=== PATIENT | male | born 1950 | race Caucasian/White ===

== ENCOUNTER 2019-04-11 18:17 | Inpatient (IN) | payer MEDICARE ==
[~2019-04-11] VITALS: Ht 177.8 cm; Wt 71.0 kg
[2019-04-11] MEDS ORDERED: PANT40 PO (19:23)
[2019-04-11] MEDS ORDERED: Mobic15 MG PO (19:23)
[2019-04-11] MEDS ORDERED: Flomax0.4 MG PO (19:24)
[2019-04-11] MEDS ORDERED: Amitriptyline150 MG PO (19:24)
[2019-04-11] MEDS ORDERED: ATOR80 PO (19:25)
[2019-04-11] MEDS ORDERED: DULO60 PO (19:25)
[2019-04-11] MEDS ORDERED: ROXICODONE15 MG PO (19:26)
[2019-04-11] MEDS ORDERED: ALBU2.5V5 NEB (19:41)
[2019-04-11] MEDS ORDERED: Ventolin/Prove6.7 GM INH (19:43)
[2019-04-11] MEDS ORDERED: INCRUSE ELLI62.5 MCG INH (19:44)
[2019-04-11] MEDS ORDERED: COLCHICINE0.6 MG PO (20:21)
[2019-04-11] MEDS ORDERED: Ranitidine HCl300 MG PO (20:23)
[2019-04-11 20:49] LABS: BASOPHILS ABSOLUTE AUTO 0.03 K/mm3 (0.00-0.23); BASOPHILS PERCENT AUTO 0 % (0-2); EOSINOPHILS PERCENT AUTO 0 % (0-6); Hematocrit 43.8 % (37.0-53.0); Hemoglobin 13.1 g/dL (13.5-17.5); IMMATURE GRAN ABSOLUTE AUTO 0.11 K/mm3 (0.00-0.10); IMMATURE GRAN PERCENT AUTO 1 % (0-1); LYMPHOCYTES ABSOLUTE AUTO 0.53 K/mm3 (0.84-5.20); LYMPHOCYTES PERCENT AUTO 3 % (21-46); MONOCYTES PERCENT AUTO 7 % (4-13); Mean Corpuscular HGB 25.1 pg (26.0-34.0); Mean Corpuscular HGB Conc 29.9 g/dL (31.5-36.5); Mean Corpuscular Volume 84 fL (80-100); Mean Platelet Volume 11.3 fL (9.1-12.4); NEUTROPHILS PERCENT AUTO 90 % (41-73); NRBC ABSOLUTE 0.04 K/mm3 (0.00-0.02); NRBC Auto 0.2 /100 WBC (0.0-0.2); Platelet Count 276 K/mm3 (150-400); RDW Coefficient Variation 15.3 % (11.7-14.2); RDW Standard Deviation 46.5 fL (35.1-46.3); Red Blood Cell Count 5.21 M/mm3 (4.30-5.90); White Blood Cell Count 18.87 K/mm3 (4.00-11.30)
--- NOTE | 2019-04-11 21:00 | NUR ---
Admission/[facility]/Intubation: Patient arrived to unit at 2015hr via stretcher, accompanied by x2 ED nurses. Patient appears alert, would look at staff when his name was called, otherwise not following any commands, no verbal response. Upper extremities restless/jerking, occasionally pulling on restraints. Upon arrival, patient appeared to be guppy breathing, short/shallow/rapid breaths (30's). Lung sounds course throughout, 6L/NC via NC, O2-93%. Patient transferred to ICU bed and Dr. Silva contacted to come assess patient. Then placed on non-rebreather at 100%, as O2% began to decrease and patient becoming less responsive. HR showed NSR with BBB, rate 70's. Dr. Silva to room at approx 2024hr to assess patient, decision then made to intubate patient. Verbal order received for 500ml NS bolus, BP remaining stable, systolic 110-130's. RT x2, and several nursing staff to room. Versed 2mg given at 6hr, Vecuronium 8mg 2036hr, Etomidate 20mg 2036. 8.0 ET tube placed at 5hr, 24cm at lip. Vent set to AC-16/450/5/40%. Patient tolerating vent without difficulty. New IV placed to rt AC and sample sent to lab for multiple lab orders. ABG drawn x30min after intubation. Critical values of lactic-6.0, pH-7.26, call placed to Dr. Silva, no new orders received. Bilateral soft wrist restraints in place.
[2019-04-11 21:06] LABS: International Normalized Ratio 2.62; Prothrombin Time Results 25.4 Sec (9.7-11.5)
[2019-04-11 21:40] LABS: PCO2 Arterial 37.4 mmHg (35-45); PO2 Arterial 91.4 mmHg (80-100); pH Blood Arterial 7.26 (7.35-7.45)
[2019-04-11 22:26] LABS: Magnesium, Blood 2.2 mg/dL (1.6-2.4); Troponin I 0.137 ng/mL (0.000-0.040)
[2019-04-11 22:39] LABS: Albumin, Blood 2.9 g/dL (3.4-5.0); Albumin/Globulin Ratio 1.2 (0.8-1.8); Bilirubin, Total 3.4 mg/dL (0.1-1.0); Bun/Creatinine Ratio 30.5 (12.0-20.0); Calcium, Blood 8.2 mg/dL (8.5-10.1); Creatinine, Blood 1.9 mg/dL (0.60-1.20); Globulin, Blood 2.5 g/dL (2.2-4.0); Potassium, Blood 6.1 mmol/L (3.5-5.5); Total Protein, Blood 5.4 g/dL (6.4-8.2)
[2019-04-11] MEDS ORDERED: OXYC5 PO (22:49)
[2019-04-11 22:56] LABS: Creatine Kinase MB 62.7 ng/mL (0.0-3.6); Creatine Kinase MB Index 3.5 (0.0-4.0)
[2019-04-11 23:17] LABS: Adenovirus Not Detected (NOT DETECT); Bordetella pertussis Not Detected (NOT DETECT); Chlamydophila pneumoniae Not Detected (NOT DETECT); Coronavirus 229E Not Detected (NOT DETECT); Coronavirus HKU1 Not Detected (NOT DETECT); Coronavirus NL63 Not Detected (NOT DETECT); Coronavirus OC43 Not Detected (NOT DETECT); Human Metapneumovirus Not Detected (NOT DETECT); Human Rhinovirus/Enterovirus Not Detected (NOT DETECT); Influenza A Not Detected (NOT DETECT); Influenza A/2009-H1 Not Detected (NOT DETECT); Influenza A/H1 Not Detected (NOT DETECT); Influenza A/H3 Not Detected (NOT DETECT); Influenza B Not Detected (NOT DETECT); Mycoplasma pneumoniae Not Detected (NOT DETECT); Parainfluenza Virus 1 Not Detected (NOT DETECT); Parainfluenza Virus 2 Not Detected (NOT DETECT); Parainfluenza Virus 3 Not Detected (NOT DETECT); Parainfluenza Virus 4 Not Detected (NOT DETECT); Respiratory Syncytial Virus Not Detected (NOT DETECT)
--- NOTE | 2019-04-11 23:30 | NUR ---
Critical Result: BMP received at approx 2230hr, critical result K+ 6.1 received. Call placed to Dr. Silva at approx 2320hr, addressed critical K+, glucose-69, and informed of elevated Ck, CK-MG, Troponin, BNP, and liver enzymes. Received orders for Calcium Gluconate 1g IV, 5u regular insulin IV, D50% 1 amp, and repeat BMP in 4hr. De Jesus in place upon arrival to unit, placed at [facility]. New temp-probe de jesus placed at this time, urine sample sent to lab. New de jesus remains patent and intact. Will continue to monitor.
[2019-04-12 00:32] LABS: Source, Urine Clean Catch
[2019-04-12 00:33] LABS: Bilirubin, Urine Neg (Neg); Blood, Urine 5+ (Neg); Glucose Qualitative, Urine Neg (Neg); Ketones, Urine 1+ (Neg); Leukocyte Esterase, Urine 2+ (Neg); Nitrite, Urine Neg (Neg); Protein, Urine 2+ (Neg); Urobilinogen, Urine 1+ (Normal)
[2019-04-12 00:42] LABS: Appearance, Urine Clear (Clear); Color, Urine Amber (P-Yellow)
[2019-04-12 00:43] LABS: Bacteria Mod /hpf; Red Blood Cells, Urine 25-50 /hpf (0-2); Squamous Epithelial Cells Not Seen /hpf (Few)
[2019-04-12 04:12] LABS: Hematocrit 37.5 % (37.0-53.0); Hemoglobin 11.5 g/dL (13.5-17.5); Mean Corpuscular HGB 24.7 pg (26.0-34.0); Mean Corpuscular HGB Conc 30.7 g/dL (31.5-36.5); Mean Corpuscular Volume 81 fL (80-100); Mean Platelet Volume 11.1 fL (9.1-12.4); NRBC ABSOLUTE 0.02 K/mm3 (0.00-0.02); NRBC Auto 0.2 /100 WBC (0.0-0.2); Platelet Count 188 K/mm3 (150-400); RDW Coefficient Variation 15.1 % (11.7-14.2); RDW Standard Deviation 43.9 fL (35.1-46.3); Red Blood Cell Count 4.66 M/mm3 (4.30-5.90); White Blood Cell Count 12.42 K/mm3 (4.00-11.30)
[2019-04-12 04:36] LABS: Albumin, Blood 2.7 g/dL (3.4-5.0); Albumin/Globulin Ratio 1.4 (0.8-1.8); Bilirubin, Total 2.3 mg/dL (0.1-1.0); Bun/Creatinine Ratio 35.4 (12.0-20.0); Calcium, Blood 7.8 mg/dL (8.5-10.1); Creatinine, Blood 1.64 mg/dL (0.60-1.20); Total Protein, Blood 4.7 g/dL (6.4-8.2); Troponin I 0.147 ng/mL (0.000-0.040)
[2019-04-12 04:53] LABS: PCO2 Arterial 35.7 mmHg (35-45); PO2 Arterial 91.4 mmHg (80-100); pH Blood Arterial 7.37 (7.35-7.45)
[2019-04-12 05:02] LABS: Creatine Kinase MB 27.4 ng/mL (0.0-3.6); Creatine Kinase MB Index 2.6 (0.0-4.0)
--- NOTE | 2019-04-12 06:18 | NUR ---
Shift Summary: Patient remains intubated/sedated. Vent to AC 16/450/5/30%, O2-93-98%. VSS remains stable, systolic 90's to low 100's, MAP's 60's. Heart rhythm continues to show sinus with 1st degree AV block and BBB, rate-60's-70's. Propofol gtt 15-20 mcg/kg/min, patient becoming more alert throughout shift. Now show's gross movement of all extremities, and responding to noxious stimuli. Appears comfortable when not stimulated by staff. Peripheral IV's x3 remains patent and intact. Au cath remains patent and intact, draining dark yellow, clear urine, approx 625ml output this shift. Morning labs showed glucose-72, received orders for 1amp D50%, and monitor glucose q6hr per Dr. Silva. Appears calm and comfortable at this time. Will continue to monitor until report to day shift RN.
--- NOTE | 2019-04-12 08:00 | NUR ---
INITIAL ASSESSMENT PATIENT INTUBATED AND ON SEDATION. PATIENT RESPONDING TO PAINFUL STIMULI AND LOCALIZING MOVEMENTS TO ALL EXTREMITIES. PUPILS 4+ IN SIZE AND REACT SLUGGISHLY TO LIGHT. PATIENT AFEBRILE. NO SIGNS OF PAIN OR DISCOMFORT NOTED AT THIS TIME. PATIENT ON VENT SETTINGS OF AC 16, TV 450, PEEP 5, FIO2 30%. LUNG SOUNDS CLEAR THROUGHOUT. LARGE AMOUNT OF THICK, BLOODY SECRETIONS BEING SUCTIONED FROM ETT. PATIENT IN FIRST DEGREE HB WITH BBB AND PROLONGED QT INTERVAL. HR IN THE 60S. SBP 90S TO LOW 100S. MAP 63 TO 70. ABDOMEN MILDLY DISTENDED, SOFT, WITH NORMOACTIVE BS. OG TO LIS, DRAINING BROWN/ GREEN LIQUID. TEMP PROBE ESTRADA DRAINING KARLOS COLORED URINE. 1+ EDEMA NOTED TO BUES AND BLES. BRUISES AND SCABS NOTED TO BLES. TATTOOS NOTED TO BILAT FAS. SCROTAL EDEMA NOTED. NS INFUSING AT 75 MLS/ HOUR, NS TKO, AND PROPOFOL AT 25 MCG/ KG/ MINUTE. BED LOW, CALL LIGHT IN REACH. AT BEDSIDE. WILL CONTINUE TO MONITOR PATIENT FREQUENTLY THROUGHOUT SHIFT.
--- NOTE | 2019-04-12 08:30 | NUR ---
DR. ZALDIVAR IN TO SEE PATIENT. INFORMED THAT PAPERWORK FROM [address] [place] [address] IS IN FRONT OF PATIENT'S CHART. INFORMED THAT PATIENT DIAGNOSED WITH CHF AND PNA. INFORMED THAT NS INFUSING AT 75 MLS/ HOUR X 1 BAG AND THEN NO MORE MAINTENANCE FLUIDS ORDERED. INFORMED THAT PATIENT HAD OUT 625 MLS OF URINE ON PRECINCT POLICE CAPTAIN. INFORMED THAT MAPS HAVE BEEN AROUND 63 TO 70 THIS AM AND THAT PATIENT IS ON PROPOFOL AT 25 MCG/ KG/ MINUTE. INFORMED THAT REPORTS PATIENT HAS CHRONIC LEFT FOOT PAIN AND THAT HE TAKES OXYCONTIN AT HOME FOR IT. NO ORDERS RECEIVED AT THIS TIME. WILL CONTINUE TO MONITOR.
[2019-04-12 10:26] LABS: U Amphetamine Screen Not Detected; U Barbituate Screen Not Detected; U Benzodiazapine Screen Not Detected; U Buprenorphine Screen Not Detected; U Cannabinoids Screen DETECTED; U Cocaine Screen Not Detected; U Methadone Screen Not Detected; U Methamphetamine Screen Not Detected; U Opiates Screen Not Detected; U Oxycodone Screen DETECTED; U Phencyclidine Screen Not Detected; U Propoxyphene Screen Not Detected
--- NOTE | 2019-04-12 12:00 | NUR ---
PATIENT RESTING QUIETLY IN BED. NO SIGNS OF PAIN OR DISCOMFORT. AFEBRILE. VITAL SIGNS STABLE. PATIENT GIVEN 40 MG IV LASIX SHORT TIME AGO PER DR. ISABEL. PROPOFOL AT 35 MCG/ KG/ MINUTE, NS TKO. NO OTHER ACUTE CHANGES TO NOTE ON AT THIS TIME. WILL CONTINUE TO MONITOR.
--- NOTE | 2019-04-12 14:30 | NUR ---
DR. ZALDIVAR INFORMED OF BLOOD SUGAR OF 68. INFORMED THAT BLOOD SUGAR WAS 72 THIS AM AND RECEIVED 1 AMP OF D50. ORDERED FOR TF TO BE STARTED. ORDER PLACED AND DOG BATHER NOTIFIED.
--- NOTE | 2019-04-12 15:44 | NUR ---
PATIENT HAD SILVER RING ON R PINKY FINGER AND BLACK GOLD RING ON LEFT RING FINGER. BOTH WERE BECOMING TIGHT FINGERS SWELLING. RINGS GIVEN TO , TOM, IN SPECIMEN CUP.
--- NOTE | 2019-04-12 16:00 | NUR ---
PATIENT REMAINS INTUBATED AND SEDATED. NO SIGNS OF PAIN OR DISCOMFORT NOTED. PATIENT AFEBRILE, VITAL SIGNS STABLE. NO ACUTE CHANGES TO NOTE ON. WILL CONTINUE TO MONITOR.
--- NOTE | 2019-04-12 18:27 | NUR ---
SHIFT SUMMARY PATIENT REMAINED INTUBATED AND SEDATED. PATIENT REMAINED RESPONDING TO PAINFUL STIMULI AND LOCALIZING MOVEMENTS IN ALL EXTREMITIES. PATIENT HAD NO SIGNS OF PAIN OR DISCOMFORT. PATIENT AFEBRILE. PATIENT REMAINED SATTING WELL ON AC 16, TV 450, PEEP 5, 30% FIO2. PATIENT HAD LARGE AMOUNT OF THICK, BLOODY SPUTUM BEING SUCTIONED FROM ETT. SECRETIONS ARE NOW SMALL IN AMOUNT. PATIENT HAS REMAINED IN FIRST DEGREE WITH BBB AND PROLONGED QT. HR REMAINED IN THE 60S. SBP REMAINED IN THE 90S TO LOW 100S. MAP REMAINED ABOVE 60. PATIENT DID NOT HAVE BM THIS SHIFT. DATE OF LAST BM UNKNOWN. VHP TF STARTED AT 10 MLS/ HOUR WITH A GOAL OF 50. 30 ML H2O FLUSH Q4H. BLOOD SUGARS 68 THIS SHIFT. 1/2 AMP OF D50 GIVEN AND BLOOD SUGAR WILL BE CHECKED AGAIN SHORTLY. ESTRADA DRAINED GOOD AMOUNT OF DARK KARLOS TO YELLOW COLORED URINE. PATIENT RECEIVED 2 DOSES OF LASIX THIS SHIFT. UO OF 3450 MLS. NO CHANGE IN SKIN. PATIENT REPOSITIONED THROUGHOUT SHIFT. NS INFUSING TKO. PROPOFOL INFUSING AT 30 MCG/ KG/ MINUTE. ECHO PERFORMED THIS SHIFT. HAS REMAINED AT BEDSIDE ALL DAY. PATIENT APPEARS COMFORTABLE AT THIS TIME. BED LOW, CALL LIGHT IN REACH. WILL BE GIVING REPORT TO ONCOMING TIMBER MANAGEMENT SPECIALIST NURSE SHORTLY.
--- NOTE | 2019-04-12 20:05 | NUR ---
ASSUMPTION OF CARE: PT INTUBATED/SEDATED. PUPILS PINPOINT. AFEBRILE. LUNG SOUNDS CLEAR THROUGHOUT. VENT SETTINGS: AC 16/450/PEEP 5/FI02 30%. SP02 >90%. SBP IN THE 90S, HR IN THE 60S. OG IN PLACE WITH CONT TF OF VHP AT 10ML/HR WITH A GOAL OF 50. NO RESIDUALS AT THIS TIME. TEMP ESTRADA IN PLACE DRAINING CLEAR YELLOW URINE. DIURESING WITH LASIX IV BID. 20G IV IN LFA-SL. 18G RFA-SL, EDISON PICC INFUSING WITH NS AT TKO AND PROP AT 30. TUBE FEED CAN BE INCREASED TO 30ML/HR AT 0000 AND TO 50MLS AT 0800. FAMILY AT BEDSIDE. WILL CONT TO MONITOR.
--- NOTE | 2019-04-13 00:15 | NUR ---
AGITATION PT THRASHING HEAD LEFT AND RIGHT ON PILLOW. PULLING AGAINST RESTRAINTS. PROPOFOL INCREASED TO 45MCG/KG/MIN AT THIS TIME.
--- NOTE | 2019-04-13 03:48 | NUR ---
PROPOFOL MOMENTARILY TURNED OFF WHILE ATTEMPTING TO DRAW LABS FROM PICC. PT BECAME VERY AGITATED, ATTEMPTING TO LIFT ARMS, SHAKING HEAD BACK AND FORTH, AND NOT ABLE TO FOLLOW COMMANDS. FENTANYL AND ATIVAN GIVEN. PROPOFOL TURNED BACK ON AND PT IS CURRENTLY RESTING COMFORTABLY.
[2019-04-13 03:59] LABS: BASOPHILS ABSOLUTE AUTO 0.01 K/mm3 (0.00-0.23); BASOPHILS PERCENT AUTO 0 % (0-2); EOSINOPHILS ABSOLUTE AUTO 0.08 K/mm3 (0.00-0.68); EOSINOPHILS PERCENT AUTO 1 % (0-6); Hematocrit 38.7 % (37.0-53.0); Hemoglobin 11.9 g/dL (13.5-17.5); IMMATURE GRAN ABSOLUTE AUTO 0.05 K/mm3 (0.00-0.10); IMMATURE GRAN PERCENT AUTO 1 % (0-1); LYMPHOCYTES ABSOLUTE AUTO 0.39 K/mm3 (0.84-5.20); LYMPHOCYTES PERCENT AUTO 5 % (21-46); MONOCYTES ABSOLUTE AUTO 0.53 K/mm3 (0.16-1.47); MONOCYTES PERCENT AUTO 7 % (4-13); Mean Corpuscular HGB 24.4 pg (26.0-34.0); Mean Corpuscular HGB Conc 30.7 g/dL (31.5-36.5); Mean Corpuscular Volume 80 fL (80-100); Mean Platelet Volume 10.8 fL (9.1-12.4); NEUTROPHILS ABSOLUTE AUTO 6.45 K/mm3 (1.96-9.15); NEUTROPHILS PERCENT AUTO 86 % (41-73); Platelet Count 188 K/mm3 (150-400); RDW Standard Deviation 43.2 fL (35.1-46.3); Red Blood Cell Count 4.87 M/mm3 (4.30-5.90); White Blood Cell Count 7.51 K/mm3 (4.00-11.30)
[2019-04-13 04:04] LABS: PCO2 Arterial 34.8 mmHg (35-45); PO2 Arterial 87.2 mmHg (80-100); pH Blood Arterial 7.48 (7.35-7.45)
[2019-04-13 04:11] LABS: International Normalized Ratio 2.03; Prothrombin Time Results 20.2 Sec (9.7-11.5)
[2019-04-13 04:21] LABS: Albumin, Blood 2.7 g/dL (3.4-5.0); Bun/Creatinine Ratio 37.9 (12.0-20.0); Calcium, Blood 7.7 mg/dL (8.5-10.1); Creatinine, Blood 1.4 mg/dL (0.60-1.20); Phosphorus, Blood 3.5 mg/dL (2.5-4.9); Potassium, Blood 3.5 mmol/L (3.5-5.5)
[2019-04-13 04:31] LABS: Albumin/Globulin Ratio 1.4 (0.8-1.8); Bilirubin, Total 1.8 mg/dL (0.1-1.0); Globulin, Blood 1.9 g/dL (2.2-4.0); Total Protein, Blood 4.6 g/dL (6.4-8.2)
--- NOTE | 2019-04-13 05:26 | NUR ---
SHIFT SUMMARY: PT REMAINS INTUBATED AND SEDATED. AFEBRILE ALL SHIFT. LUNG SOUNDS CLEAR. VENT SETTINGS-AC16/450/PEEP 5/FI02 30%. SPO2 >90%. SBP IN THE 90S, HR IN THE 60S. OG IN PLACE WITH VHP RUNNING AT 30MLS/HR WITH 30ML FLUSH Q 4H. GOAL IS 50ML/HR. NO RESIDUALS THIS SHIFT. TEMP ESTRADA IN PLACE DRAINING LARGE AMTS OF CLEAR YELLOW URINE-3300 MLS OUT THIS SHIFT. 18G RFA-SL. EDISON PICC INFUSING WITH NS TKO, PROPOFOL 45 MCG. PT IS RECEIVING VANCO, CEFEPIME, FLAGYL. HAS FENTANYL AND ATIVAN ORDERED FOR AGITATION. ATTEMPTED SEDATION VACATION. HOWEVER PT BECAME AGITATED, LIFTING ARMS AGAINST RESTRAINTS, SHAKING HEAD BACK AND FORTH, AND WAS UNABLE TO FOLLOW COMMANDS. FENTANYL, ATIVAN GIVEN AND PROPOFOL TURNED BACK ON. BLOOD SUGARS STABLE AT 79, 89.
--- NOTE | 2019-04-13 08:00 | NUR ---
ASSUMED CARE OF NOTE: ASUMMED CARE OF PT @ 0700, RECEIVED REPORT FROM CORBIN CRUZ. PT ON VENT WITH SETTINGS @ AC16/450/5/30%. SPO2 ABOVE 90%. SMALL AMOUNTS OF CASTRO THICK SPUTUM NOTED. PT IS ABLE TO RESPOND TO PAIN. PT SEDATED WITH PROPOFOL @ 40MCG/KG/MIN. TUBE FEEDING RUNNING @ GOAL 50MLS/HR, RESIDUALS LESS THAN 5MLS. ESTRADA PATENT AND DRAINING CLEAR YELLOW URINE. AT BEDSIDE WILL MONITOR PT T/O SHIFT.
--- NOTE | 2019-04-13 17:08 | NUR ---
SEDATION VACATION: PROPOFOL WAS DECREASED TO 30MCG/KG/MIN, WITHIN 15 MIN PT BECAME AGITATED AND MOVING HEAD FROM SIDE TO SIDE. PT WAS UNABLE TO FOLLOW COMMANDS OR RESPOND TO VERBAL STIMULI. DUE TO PT'S PREVIOUS SEDATION VACATION RESPONSE AND HIS CURRENT AGITATION, SEDATION VACATION WAS CEASED AND PROPOFOL WAS INCREASED BACK TO 40MCG/KG/MIN.
--- NOTE | 2019-04-13 17:48 | NUR ---
SHIFT SUMMARY: PT CONTINUES TO BE ON VENT WITH SETTINGS CHANGED TO AC12/400/5/30%, SP02 MAINTAINING ABOVE 90%. PT SEDATED WITH PROPOFOL @ 40MCG/KG/MIN. PT CONTINUES TO HAVE SMALL AMOUNTS OF CASTRO SPUTUM WITH SUCTION. PT ONLY RESPONDS TO PAINFUL STIMULI. TUBE FEED CONTINUES TO RUN AT GOAL OF 50ML/HR WITH LESS THAN 5MLS FOR RESIDUAL. SR WITH BBB HR BETWEEN 60-70'S BPM. PICC LINE DRESSING CHANGED , PICC EXPOSED TO 19 1/2CM, ORIGINALLY WAS 15CM, CALLED ON THE ISSUE, PICC, XRAY ORDERED IN THE AM, OKAY TO USE IN THE MEANTIME. ESTRADA PATENT AND DRAINING CLEAR YELLOW URINE. MAP MAINTAINED ABOVE 60. DAUGHTER AT BEDSIDE, CALL LIGHT WITHIN REACH. WILL CONTINUE TO MONITOR PT UNTIL REPORT IS GIVEN TO ONCOMING SHIFT.
--- NOTE | 2019-04-13 20:00 | NUR ---
ASSUMED CARE OF PT AT 1915. REPORT RECEIVED AT BEDSIDE. PT PRESENTS IN BED. VENTED AC 12, Tv 400, FIO2 30%, PEEP 5. PT MAINTAINS > 90 PERCENT SATURATIONS WITH THESE SETTINGS. FAMILY IN ROOM AT THIS TIME. ANSWERED QUESTIONS FOR THEM. TEACHING DONE. WILL REVIEW CHART AND PLAN OF CARE FOR THIS PT.
[2019-04-13 20:35] LABS: Vancomycin, Trough 15.2 ug/mL (5.0-10.0)
--- NOTE | 2019-04-14 | NUR ---
HAVE MEDICATED PT WITH 25 MCG FENTANYL FOR VENT TOLERANCE, AND PT'S HISTORY OF CHRONIC PAIN. THIS HAS HELPED IMPROVE VENT TOLERANCE, AND HE HAS BEEN ABLE TO REST. HAVE COMPLETED FULL BEDBATH FOR THIS PT. HE TOLERATES THIS WELL. PROPOFL AT 45 MCG'S. WILL MAKE ARRANGEMENTS WITH RESPIRATORY CARE FOR AM WEAN. FAMILY ROOMS IN FOR THE NIGHT. NO DISRESS NOTED FROM PATIENT. TOLERATES Q 2 HOUR TURNS IN BED. WILL CONTINUE TO MONITOR PT.
--- NOTE | 2019-04-14 03:53 | NUR ---
PT CONTINUES WITH SAME VENT SETTINGS. AGAIN, MAINTAINS >90 PERCENT SATRUATIONS ON FI02 30 PERCENT. HAVE MEDICATED PT AGAIN WITH 25 MCG FENTANYL TO IMPROVE VENT TOLERANCE WITH GOOD RESULTS. BLOOD PRESSURES HAVE REMAINED WITH MAP > 65 PERCENT. WILL CONTINUE TO MONITOR.
[2019-04-14 05:17] LABS: BASOPHILS ABSOLUTE AUTO 0.01 K/mm3 (0.00-0.23); BASOPHILS PERCENT AUTO 0 % (0-2); EOSINOPHILS ABSOLUTE AUTO 0.08 K/mm3 (0.00-0.68); EOSINOPHILS PERCENT AUTO 1 % (0-6); Hematocrit 41.1 % (37.0-53.0); IMMATURE GRAN ABSOLUTE AUTO 0.03 K/mm3 (0.00-0.10); IMMATURE GRAN PERCENT AUTO 0 % (0-1); LYMPHOCYTES ABSOLUTE AUTO 0.55 K/mm3 (0.84-5.20); LYMPHOCYTES PERCENT AUTO 8 % (21-46); MONOCYTES ABSOLUTE AUTO 0.63 K/mm3 (0.16-1.47); MONOCYTES PERCENT AUTO 9 % (4-13); Mean Corpuscular HGB 24.8 pg (26.0-34.0); Mean Corpuscular HGB Conc 31.6 g/dL (31.5-36.5); Mean Corpuscular Volume 78 fL (80-100); Mean Platelet Volume 10.5 fL (9.1-12.4); NEUTROPHILS ABSOLUTE AUTO 5.72 K/mm3 (1.96-9.15); NEUTROPHILS PERCENT AUTO 82 % (41-73); Platelet Count 169 K/mm3 (150-400); RDW Coefficient Variation 15.1 % (11.7-14.2); RDW Standard Deviation 42.4 fL (35.1-46.3); Red Blood Cell Count 5.24 M/mm3 (4.30-5.90); White Blood Cell Count 7.02 K/mm3 (4.00-11.30)
[2019-04-14 05:29] LABS: PCO2 Arterial 33.5 mmHg (35-45); PO2 Arterial 89.4 mmHg (80-100); pH Blood Arterial 7.57 (7.35-7.45)
[2019-04-14 05:29] LABS: International Normalized Ratio 1.56; Prothrombin Time Results 15.9 Sec (9.7-11.5)
[2019-04-14 05:43] LABS: Albumin, Blood 2.5 g/dL (3.4-5.0); Albumin/Globulin Ratio 1.1 (0.8-1.8); Alk Phos 312 U/L (50-136); Anion Gap 7 mmol/L (6-16); Aspartate Aminotrans (AST/SGOT 534 U/L (12-37); Bilirubin, Direct 0.9 mg/dL (0.0-0.3); Bilirubin, Indirect 0.7 mg/dL (0.1-0.7); Bilirubin, Total 1.6 mg/dL (0.1-1.0); Blood Urea Nitrogen 47 mg/dL (8-24); Bun/Creatinine Ratio 46.5 (12.0-20.0); CO2, Blood 29 mmol/L (21-32); Chloride, Blood 106 mmol/L (98-108); Creatinine, Blood 1.01 mg/dL (0.60-1.20); Globulin, Blood 2.3 g/dL (2.2-4.0); Glomerular Filtration Rate >60 (60-); Glucose, Blood 120 mg/dL (70-99); Magnesium, Blood 1.7 mg/dL (1.6-2.4); Phosphorus, Blood 2.7 mg/dL (2.5-4.9); Potassium, Blood 3.2 mmol/L (3.5-5.5); Sodium, Blood 142 mmol/L (136-145); Total Protein, Blood 4.8 g/dL (6.4-8.2)
--- NOTE | 2019-04-14 06:09 | NUR ---
WEAN TRIAL WITH SEDATION VACATION ATTEMPTED THIS AM. PT'S RESPIRATORY RATE INCREASED INTO 30-40'S PER MINUTE. DID NOT FOLLOW ANY COMMANDS. WOULD SHAKE HEAD BACK AND FORTH. PT'S DAUGHTER IN ROOM, SHE TRIES TO GET PT TO FOCUS AND WAS UNSUCCESSFUL. PT HAS BEEN MEDICATED TWICE THIS NIGHT WITH FENTANYL WITH GOOD VENT TOLERANCE FOLLOWING. HAS MAINTAINED OXYGEN SATRUATIONS > 90 PERCENT THROUGH THIS NIGHT. BLOOD PRESSURES HAVE REMAINED WNL. WILL CONTINUE TO MONITOR PT, AND WILL REPORT OFF TO ONCOMING RN.
[2019-04-14 06:15] LABS: Alanine Aminotransfer (ALT/SGP 1753 U/L (12-78)
--- NOTE | 2019-04-14 08:00 | NUR ---
ASSUMED CARE NOTE: ASSUMED CARE OF PT @ 0700, RECEIVED REPORT FROM ISSA CRUZ. PT ON VENTILATOR WITH SETTINGS @ AC12/400/5/30%, SPO2 ABOVE 90% PT SEDATED WITH PROPOFOL @ 45MCG/KG/MIN. PT IS RESPONSIVE TO PAIN. SBP MAINTANING ABOVE 90, HR IN THE 70'S, SR W/ BBB. ESTRADA PATENT AND DRAINING YELLOW CLEAR URINE, NO LEAKAGE NOTED. WILL MONITOR PT T/O SHIFT.
[2019-04-14 13:22] LABS: Source, Urine Catheter
[2019-04-14 13:25] LABS: Bilirubin, Urine Neg (Neg); Blood, Urine 4+ (Neg); Glucose Qualitative, Urine Neg (Neg); Ketones, Urine Neg (Neg); Leukocyte Esterase, Urine 2+ (Neg); Nitrite, Urine Neg (Neg); Protein, Urine Neg (Neg); Urobilinogen, Urine NORM (Normal)
[2019-04-14 13:31] LABS: Appearance, Urine Clear (Clear); Color, Urine Yellow (P-Yellow)
[2019-04-14 13:34] LABS: Bacteria Rare /hpf; Squamous Epithelial Cells Not Seen /hpf (Few)
[2019-04-14 13:35] LABS: Amorphous Light (0-Heavy); Hyaline Casts Rare /lpf (0-2); Mucus Light (0-Heavy)
--- NOTE | 2019-04-14 14:26 | NUR ---
UPDATE: PT WAS SWITCHED OVER TO PRECEDEX EARLIER THIS AFTERNOON AND PROPOFOL WAS DC'D. PT IS ON MAX DOSE OF 0.7MCG/KG/HR PRECEDEX. PT CONTINUED TO THRASH HIS HEAD FROM SIDE TO SIDE, HE WAS GIVEN PRN VERSED AND FENTYNAL. CALLED FOR FURTHER ORDERS TO IMPROVE VENT COMPLIANCE.
--- NOTE | 2019-04-14 15:32 | NUR ---
SEDATION UPDATE: ORDERS GIVEN TO ADD PROPOFOL TO PRECEDEX. PT IS CURRENLY ON 20MCG/KG/MIN OF PROPOFOL AND 0.7MCG/KG/HR. PT IS NOW TOLERATING VENT. AT BEDSIDE.
--- NOTE | 2019-04-14 17:18 | NUR ---
SHIFT SUMMARY: PT REMAINS ON VENT WITH SETTINGS AT AC12/400/5/30%. PT IS SEDATED WITH PROPOFOL AT 20MCG/KG/MIN AND PRECEDEX AT 0.7MCG/KG/HR. PT HAS BEEN SWITCHED TO TUBE FEEDING PIVOT 1.5, IT IS CURRENTLY RUNNING AT GOAL 45ML/HR WITH 30ML/HR FLUSH Q 4HR. TUBE FEEDING LINES CHANGED. NO RESIDUALS THIS SHIFT. ESTRADA WAS CHANGED THIS SHIFT DUE TO LEAKAGE, NEW 18F ESTRADA WAS PLACED AND URINE SAMPLE SENT TO LAB. ESTRADA PATENT AND DRAINING WELL. PT IS SR WITH BBB HR BETWEEN 60-70 BPM. MAP REMAINED ABOVE 65. 'S PLAN IS TO TRANSFER PT TO [place] THIS WEEKEND IF A BED BECOMES AVALAIBLE. AT BEDSIDE, WILL CONTINUE TO MONITOR PT UNTIL REPORT IS GIVEN TO ONCOMING SHIFT.
--- NOTE | 2019-04-14 20:20 | NUR ---
ASSUMED CARE OF PT. REPORT RECEIVED AT BEDSIDE. PT PRESENTS IN BED. VENTED. SETTINGS AC 12, Tv 400, 30 PERCENT FIO2, PEEP 5. PT TOLERATING VENT WELL WITH PRECEDEX AT 0.7 MCG/KG/HOUR AND PROPOFOL AT 20 MCG'S. PT IN NO APPARENT DISTRESS. PT'S IN ROOM. ANSWERED QUESTIONS AND TEACHING DONE. WILL REVIEW CHART AND PLAN OF CARE FOR THIS PT.
--- NOTE | 2019-04-14 23:00 | NUR ---
PT SOMEWHAT RESTLESS WITH VENT. TENDS TO SHAKE HEAD BACK AND FORTH. HAVE MEDICATED PT WITH 25 MCG FENTANYL WHICH HAS DEMONSTRATED IMPROVED VENT TOLERANCE. PT'S ROOMS IN FOR THE NIGHT. HAVE GIVEN UPDATE ON PT'S CONDITION AND PLAN OF CARE. OGT WITH LESS THAN 10 ML RESIDUAL WHICH WAS THEN REINFUSED. WILL CONTINUE TO MONITOR PT.
--- NOTE | 2019-04-15 04:00 | NUR ---
HAVE INCREASED PROPOFOL TO 30 MCG'S AND PRECEDEX REMAINS AT 0.7 MCG/KG/HOUR. PT MEDICATED EARLIER AGAIN WITH FENTANYL 25 MCG'S. THIS MODERATELY IMPROVES PT'S INTOLERANCE OF VENT. HAVE RESEARCHED CHART AND NOTED PT ON DAY NUMBER FOUR WITHOUT BM. WILL MEDICATE WITH MOM. WILL ALSO DO WEAN TRIAL THIS EARLY AM.
[2019-04-15 04:48] LABS: BASOPHILS ABSOLUTE AUTO 0.01 K/mm3 (0.00-0.23); BASOPHILS PERCENT AUTO 0 % (0-2); EOSINOPHILS ABSOLUTE AUTO 0.17 K/mm3 (0.00-0.68); EOSINOPHILS PERCENT AUTO 2 % (0-6); Hematocrit 44.1 % (37.0-53.0); Hemoglobin 13.5 g/dL (13.5-17.5); IMMATURE GRAN ABSOLUTE AUTO 0.03 K/mm3 (0.00-0.10); IMMATURE GRAN PERCENT AUTO 0 % (0-1); LYMPHOCYTES ABSOLUTE AUTO 0.62 K/mm3 (0.84-5.20); LYMPHOCYTES PERCENT AUTO 7 % (21-46); MONOCYTES ABSOLUTE AUTO 0.94 K/mm3 (0.16-1.47); MONOCYTES PERCENT AUTO 11 % (4-13); Mean Corpuscular HGB 24.3 pg (26.0-34.0); Mean Corpuscular HGB Conc 30.6 g/dL (31.5-36.5); Mean Corpuscular Volume 79 fL (80-100); Mean Platelet Volume 10.5 fL (9.1-12.4); NEUTROPHILS ABSOLUTE AUTO 6.56 K/mm3 (1.96-9.15); NEUTROPHILS PERCENT AUTO 79 % (41-73); Platelet Count 169 K/mm3 (150-400); RDW Coefficient Variation 15.2 % (11.7-14.2); RDW Standard Deviation 43.7 fL (35.1-46.3); Red Blood Cell Count 5.56 M/mm3 (4.30-5.90); White Blood Cell Count 8.33 K/mm3 (4.00-11.30)
[2019-04-15 05:06] LABS: Albumin, Blood 2.5 g/dL (3.4-5.0); Alk Phos 287 U/L (50-136); Anion Gap 6 mmol/L (6-16); Aspartate Aminotrans (AST/SGOT 233 U/L (12-37); Bilirubin, Direct 0.9 mg/dL (0.0-0.3); Bilirubin, Indirect 0.6 mg/dL (0.1-0.7); Bilirubin, Total 1.5 mg/dL (0.1-1.0); Blood Urea Nitrogen 43 mg/dL (8-24); Bun/Creatinine Ratio 53.4 (12.0-20.0); CO2, Blood 31 mmol/L (21-32); Calcium, Blood 7.4 mg/dL (8.5-10.1); Chloride, Blood 108 mmol/L (98-108); Creatinine, Blood 0.81 mg/dL (0.60-1.20); Globulin, Blood 2.4 g/dL (2.2-4.0); Glomerular Filtration Rate >60 (60-); Glucose, Blood 142 mg/dL (70-99); Magnesium, Blood 1.8 mg/dL (1.6-2.4); Potassium, Blood 3.6 mmol/L (3.5-5.5); Sodium, Blood 145 mmol/L (136-145); Total Protein, Blood 4.9 g/dL (6.4-8.2)
[2019-04-15 05:09] LABS: Alanine Aminotransfer (ALT/SGP 1241 U/L (12-78)
--- NOTE | 2019-04-15 06:33 | NUR ---
PT HAS NOT HAD ANY RESULTS YET FROM MOM. WILL CONTINUE TO MONITOR FOR RESULTS. PT WAS MEDICATED WITH 50 MCG FENTANYL WITH MUCH IMPROVEMENT. TOLERATING TUBE FEEDING WELL AT GOAL. CONTINUES WITH LESS THAN 10 ML RESIDUALS PER CHECK. WILL CONTINUE TO MONITOR PT, AND WILL REPORT OFF TO ONCOMING RN.
--- NOTE | 2019-04-15 07:00 | NUR ---
ASSUMED CARE NOTE: ASSUMED CARE OF PT AT 0700, RECEVIED REPORT FROM ISSA CRUZ. PT ON VENT WITH SETTINGS AT AC12/400/5/30%, SPO2 ABOVE 95% PT MAKING NON PURPOSEFUL MOVEMENT AND MOVING HIS HEAD FROM SIDE TO SIDE. SR WITH BBB, HR IN THE 70'S. PT CURRENTLY SEDATED WITH 30MCG/KG/MIN, AND PRECEDEX AT 0.7MCG/KG/HR. PT IN BILAT SWR. ESTRADA PATENT AND DRAINING KARLOS URINE. AT BEDSIDE, WILL MONITOR PT T/O SHIFT.
--- NOTE | 2019-04-15 10:00 | NUR ---
UPDATE: PT TAKEN TO CT SACN VIA BED. PRN FENTYNAL AND VERSED GIVEN FOR AGITATION AND RESTLESSNESS BEFORE IN ORDER TO COMPLETE PROCEDURE. COARSE LUNG SOUNDS HEARD BILAT UPPER LOBES, LASIX GIVEN PER EMAR THIS AM.
--- NOTE | 2019-04-15 16:05 | NUR ---
UPDATE NOTE: PT CONTINUES TO MAKE NON PURPOSFUL MOVMENTS. PT CONTINUES TO MOVE HEAD SIDE TO SIDE AND MOVE FEET. CURRENTLY SEDATED WITH 35MCG/KG/MIN FENTYNAL, 0.7MCG/KG/HR PRECEDEX. PT RESPONDS TO PAINFUL STIMULI. SR WITH BBB, HR BETWEEN 50-70 BMP. TUBE FEEDING RUNNING AT NEW GOAL OF 35ML/HR OF PIVOT 1.5. LAST TF RESIDUAL WAS LESS THAN 5MLS. ACTIVE BOWEL SOUNDS IN ALL QUADRANTS, HOWEVER, NO BM SO FAR THIS SHIFT. ESTRADA PATENT AND DRAINING KARLOS COLOR URINE. AT BEDSIDE. WILL CONTINUE TO MONITOR.
--- NOTE | 2019-04-15 17:50 | NUR ---
SHIFT SUMMARY: NO SIGNIFICANT CHANGES SINCE LAST NOTE. MEDICATED PT WITH VERSED DUE TO INCREASED MOVEMENTS, AND VENT INTOLERANCE, AND TO PREVENT SELF-EXTUBATION. TEMP @ 100.8 BLANKETS REMOVED, ROOM TEMP DECREASED. PT HAS BEEN OPENING EYES, HOWEVER IS UNABLE TO FOLLOW COMMANDS OR TRACK. VENT SETTING REMAIN AC12/400/5/30% AND IS BEING SEDATED WITH 0.7MCG/KG/HR OF PRECEDEX AND 30MCG/KG/MIN OF PROPOFOL. SCANT AMOUNT OF BLOOD TINGED SPUTUM. WILL CONTINUE TO MONITOR PT UNTIL REPORT IS GIVEN TO ONCOMING SHIFT.
--- NOTE | 2019-04-15 18:36 | NUR ---
UPDATE: MAP DROPPED BELOW 50, CALLED , NEW ORDERS GIVEN. DOPAMINE @ 15MCG/KG/MIN, PROPOFOL ON STANDBY. 500ML OF NS BEING GIVEN. FAMILY AT BEDSIDE.
--- NOTE | 2019-04-15 18:42 | NUR ---
UPDATE: MAP UP TO 70, WAITING ON ALBUMIN FROM PHARMACY TO INFUSE. PT THRASHING HEAD FROM SIDE TO SIDE. PROPOFOL @ 20MCG/KG/MIN, PRECEDEX @ 0.7MCG/KG/HR.
--- NOTE | 2019-04-15 19:59 | NUR ---
TEMP 101.7 ICE APPLIED TO AXILLARY X2 AND GROIN X2.
[2019-04-15 21:19] LABS: Vancomycin, Trough 11.4 ug/mL (5.0-10.0)
--- NOTE | 2019-04-15 23:08 | NUR ---
DR. SCHMIDT TO BEDSIDE AND UPDATED. DOPAMINE REDUCED TO 5mcg/kg/min TO JUST KEEP A MAP OF 60. PROPOFOL CURRENTLY AT 30mcg. CONTINUE TO HOLD COREG UNTIL TOMORROW.
--- NOTE | 2019-04-16 00:15 | NUR ---
DR. SCHMIDT TO BEDSIDE. UPDATED RE DOPMINE TITRATED TO PAUSE. PT HR 55-57, QT 0.55 AT THIS TIME. BP 102/50 MAPS 60'S. VERBAL ORDER TO KEEP DOPAMINE AT 3mcg/kg/min.
--- NOTE | 2019-04-16 03:14 | NUR ---
PT WITH INCREASED AGITATION REQUIRING FENTANYL AND VERSED. PT WITH INCREASED COUGH. RT TO BEDSIDE. SUCTIONING WITH COPIOUS AMOUNT OF RED TINGED/CASTRO SPUTUM. PT, AFTERWARDS, MORE CALM. VSS. WILL CONTINUE TO MONITOR.
[2019-04-16 03:49] LABS: BASOPHILS ABSOLUTE AUTO 0.03 K/mm3 (0.00-0.23); BASOPHILS PERCENT AUTO 0 % (0-2); EOSINOPHILS ABSOLUTE AUTO 0.19 K/mm3 (0.00-0.68); EOSINOPHILS PERCENT AUTO 2 % (0-6); Hematocrit 43.6 % (37.0-53.0); Hemoglobin 13.5 g/dL (13.5-17.5); IMMATURE GRAN ABSOLUTE AUTO 0.03 K/mm3 (0.00-0.10); IMMATURE GRAN PERCENT AUTO 0 % (0-1); LYMPHOCYTES ABSOLUTE AUTO 0.99 K/mm3 (0.84-5.20); LYMPHOCYTES PERCENT AUTO 10 % (21-46); MONOCYTES ABSOLUTE AUTO 1.38 K/mm3 (0.16-1.47); MONOCYTES PERCENT AUTO 14 % (4-13); Mean Corpuscular HGB 24.5 pg (26.0-34.0); Mean Corpuscular Volume 79 fL (80-100); Mean Platelet Volume 10.7 fL (9.1-12.4); NEUTROPHILS ABSOLUTE AUTO 7.27 K/mm3 (1.96-9.15); NEUTROPHILS PERCENT AUTO 74 % (41-73); Platelet Count 135 K/mm3 (150-400); RDW Coefficient Variation 15.4 % (11.7-14.2); RDW Standard Deviation 43.8 fL (35.1-46.3); Red Blood Cell Count 5.52 M/mm3 (4.30-5.90); White Blood Cell Count 9.89 K/mm3 (4.00-11.30)
[2019-04-16 03:59] LABS: International Normalized Ratio 1.34; Prothrombin Time Results 13.8 Sec (9.7-11.5)
[2019-04-16 04:04] LABS: Albumin, Blood 2.9 g/dL (3.4-5.0); Anion Gap 5 mmol/L (6-16); Blood Urea Nitrogen 40 mg/dL (8-24); Bun/Creatinine Ratio 62.4 (12.0-20.0); CO2, Blood 31 mmol/L (21-32); Calcium, Blood 7.5 mg/dL (8.5-10.1); Chloride, Blood 107 mmol/L (98-108); Creatinine, Blood 0.64 mg/dL (0.60-1.20); Glomerular Filtration Rate >60 (60-); Glucose, Blood 129 mg/dL (70-99); Phosphorus, Blood 1.7 mg/dL (2.5-4.9); Potassium, Blood 3.7 mmol/L (3.5-5.5); Sodium, Blood 143 mmol/L (136-145)
--- NOTE | 2019-04-16 04:36 | NUR ---
DR. SCHMIDT NOTIFIED RE: CONTINUED RED-TINGED CASTRO SPUTUM FROM ET TUBE. STAT CHEST XRAY ORDERED.
--- NOTE | 2019-04-16 07:30 | NUR ---
ASSUMED CARE OF PATIENT; SEE ASSESSMENT CHARTING FOR DETAILS. PATIENT SLEEPING; SEDATED ON PROPOFOL 40MCG/KG/MIN AND PRECEDEX AT 0.7 MCG/KG/MIN; RESPONDS TO FIRM TACTILE/TO PAINFUL STIMULI. SPOUSE AT BEDSIDE; SLEEPING AND STAYING IN ROOM WITH PATIENT. DOPAMINE DRIP INFUSING AT 3MCG/KG/MIN. SBP 100-122 THE PAST HOUR. BILAT. WRIST RESTRAINTS IN PLACE TO PREVENT SELF EXTUBATION. ATTEMPT TO REDUCE PRECEDEX AND PATIENTS' BECOMES RESTLESS AND MOVES HEAD BACK/FORTH. ORAL CARE GIVEN WITHOUT PATIENT BITING DOWN BUT DID MOVE HEAD AROUND. CONTINUES WITH SOME BLOODY COLORED, ORAL SECRETIONS (POOR DENTAL HYGIENE). ESTRADA TO GRAVITY AND DRAINING MOD AMOUNTS OF MED. YELLOW URINE. TO RECEIVE LASIX 40MG AT 0900, PER ROUTINE ORDER. LUNGS DIMINSHED IN BASIS WITH SOME CRACKLES NOTED IN LLL. OGT, WITH PIVOT 1.5, INFUSING AT 35ML/HR; 65CC RESIDUAL. SCD'S IN PLACE AND FUNCTIONING. EDEMA TO BILAT HANDS; TRACE EDEMA TO ANKLES. REMAINS ON VENT. WITH SETTINGS: A/C 12, TV400, PEEP 5 AND FIO2 30%.
--- NOTE | 2019-04-16 07:40 | NUR ---
DR. HENDRIX HERE; SEE ORDERS.
--- NOTE | 2019-04-16 11:15 | NUR ---
DR. SCHMIDT HERE; MINIMAL CHANGES.
--- NOTE | 2019-04-16 18:00 | NUR ---
SUMMARY: DRIPS UNCHANGED; PRECEDEX AT 0.7MCG/KG/HR; PROPOFOL AT 40MCG/KG/MIN; AND DOPAMINE AT 3MCG/KG/MIN. SBO DROPPED DOWN EARLIER AND PATIENT AGGITATED AND MOVING HEAD BACK AND FORTH. FENTANYL AND VERSED PRN FOR ANXIETY/RESTLESSNESS. BILAT. WRIST RESTRAINTS IN PLACE; SWELLING SL. REDUCED FROM HANDS; NO EDEMA NOTED TO LE'S. RESIDUAL FROM OGT FEEDINGS DOWN TO 25ML THIS AFTERNOON; NO STOOLS. DR. SCHMIDT DC'D CBG CHECKS D/T PATIENT NOT REQUIRING COVERAGE OF INSULIN. KPHOS INFUSION GIVEN D/T PHOS DOWN TO 1.7; ORDERED BY DR. HENDRIX. SPOUSE REMAINS AT BEDSIDE AND VERY SUPPORTIVE AND COOPERATIVE.
--- NOTE | 2019-04-16 19:30 | NUR ---
[place] of Care: Patient intubated/sedated. Precedex gtt at 0.7mcg/kg/hr, propofol gtt at 40 mcg/kg/min. Patient restless at shift change, shaking head [id number], gross movement of all extremities, unable to verbally re-direct patient. Prn versed given per restlessness and coughing with good effect noted. Patient responds to noxious stimuli, otherwise does not follow any commands. Vent to AC-12/400/5/30%, O2-100%. Dopamine gtt at 3mcg/kg/min, VS stable. PICC to EDISON patent and intact, infusing without difficulty. Temp-probe de jesus patent and intact, draining dark yellow, clear urine. Temp of 99.3 at shift change, ice bags removed from groin, will continue to monitor temp. Appears calm and comfortable at this time. Will continue to monitor for pain, comfort, safety.
[2019-04-17 03:51] LABS: BASOPHILS ABSOLUTE AUTO 0.03 K/mm3 (0.00-0.23); BASOPHILS PERCENT AUTO 0 % (0-2); EOSINOPHILS ABSOLUTE AUTO 0.46 K/mm3 (0.00-0.68); EOSINOPHILS PERCENT AUTO 5 % (0-6); Hematocrit 43.6 % (37.0-53.0); Hemoglobin 13.2 g/dL (13.5-17.5); IMMATURE GRAN ABSOLUTE AUTO 0.03 K/mm3 (0.00-0.10); IMMATURE GRAN PERCENT AUTO 0 % (0-1); LYMPHOCYTES ABSOLUTE AUTO 0.92 K/mm3 (0.84-5.20); LYMPHOCYTES PERCENT AUTO 10 % (21-46); MONOCYTES ABSOLUTE AUTO 0.99 K/mm3 (0.16-1.47); MONOCYTES PERCENT AUTO 10 % (4-13); Mean Corpuscular HGB 24.3 pg (26.0-34.0); Mean Corpuscular HGB Conc 30.3 g/dL (31.5-36.5); Mean Corpuscular Volume 80 fL (80-100); Mean Platelet Volume 10.2 fL (9.1-12.4); NEUTROPHILS PERCENT AUTO 75 % (41-73); Platelet Count 132 K/mm3 (150-400); RDW Coefficient Variation 15.4 % (11.7-14.2); RDW Standard Deviation 44.9 fL (35.1-46.3); Red Blood Cell Count 5.43 M/mm3 (4.30-5.90); White Blood Cell Count 9.53 K/mm3 (4.00-11.30)
[2019-04-17 04:03] LABS: Albumin, Blood 2.4 g/dL (3.4-5.0); Anion Gap 5 mmol/L (6-16); Blood Urea Nitrogen 37 mg/dL (8-24); Bun/Creatinine Ratio 66.1 (12.0-20.0); CO2, Blood 30 mmol/L (21-32); Calcium, Blood 7.2 mg/dL (8.5-10.1); Chloride, Blood 108 mmol/L (98-108); Creatinine, Blood 0.56 mg/dL (0.60-1.20); Glomerular Filtration Rate >60 (60-); Glucose, Blood 126 mg/dL (70-99); International Normalized Ratio 1.24; Phosphorus, Blood 1.9 mg/dL (2.5-4.9); Potassium, Blood 3.7 mmol/L (3.5-5.5); Prothrombin Time Results 12.9 Sec (9.7-11.5); Sodium, Blood 143 mmol/L (136-145)
--- NOTE | 2019-04-17 06:47 | NUR ---
Shift Summary: No significant changes throughout shift. Patient remains intubated/sedated, vent to AC-12/400/5/30%, O2-98-100%. Moderated to lg amount of thick yellow/blood tinged sputum from ETT throughout shift. Propofol remained at 40mcg/kg/min, Precedex at 0.7mcg/kg/hr throughout shift, patient also required several doses of prn Versed per agitation/restless, and coughing the vent. Prn Versed effective to calm patient. Dopamine at 3mcg/kg/min throughout most of shift. Attempted to decrease dopamine to 2mcg approx mid-shift, but systolic BP decreased to 70's. BP/MAP/HR stable with Dopamine at 3mcg/kg/min. PICC line remains patent and intact, infusing without difficulty. Au cath remains patent and intact, draining clear, dark yellow urine. Appears calm and comfortable at this time. Will continue to monitor until report to day shift RN.
--- NOTE | 2019-04-17 10:07 | NUR ---
PT ASSESSED AT 0715 THIS AM. PT SEDATED ON 40MCG PROPOFOL AND 0.7MCG PRECEDEX FOR MECH VENT. PT AROUSES TO NOXIOUS STIMULI, DOES NOT FOLLOW COMMANDS. DOPAMINE AT 3MCG; WILL TITRATE DOWN TOLERATED. AT BEDSIDE. DR SCHMIDT IN TO SEE PT AT 0845. WILL ATTEMPT WEANING TRIAL TODAY. PROPOFOL PLACED ON STANDYBY AT 0900. TF PLACED ON HOLD. WEANING TRIAL STARTED AT 0910. PT AWAKE, SHRUGS SHOULDERS CONSTANTLY, TURNS HEAD FROM SIDE TO SIDE. DOES TRACK EYE TO VOICE, AND LOOKS AT PERSON SPEAKING; DOES NOT FOLLOW DIRECTIONS. VERSED 2MG IVP GIVEN FOR EXCESSIVE RESTLESSNESS/AGITATION; DR SCHMIDT AWARE. PT EXTUBATED AT 0950 AFTER 30MIN SUCCESSFUL WEANING TRIAL. DR SCHMIDT AT BEDSIDE. OG DC'D W ETT. PRECEDEX REMAINS AT 0.7MCG. PT PLACED ON 2L N/C, SATS 96%. PT REMAINS RESTLESS W SHOULDER SHRUG/HEAD TURNS. WILL ATTEMPT TO TITRATE PRECEDEX AND DOPAMINE DOWN/OFF TODAY TOLERATED.
--- NOTE | 2019-04-17 11:23 | NUR ---
PT ABLE TO FOLLOW SOME SIMPLE COMMANDS. MOVEMENTS APPEAR UNVOLUNTARY AND HAVE NOT IMPROVED. PT MUCH MORE ALERT, SMILES, SEEMS CONFUSED. PRECEDEX PLACED ON STANDBY. WEAK COUGH. REMAINS AT BEDSIDE. VSS.
--- NOTE | 2019-04-17 12:48 | NUR ---
PT IS IMPROVING COGNITIVELY. NODS HEAD APPROPRIATELY TO QUESTIONS, FOLLOWS COMMANDS. RESTLESS MOVEMENTS APPEAR TO BE IMPROVED. PRECEDEX REMAINS OFF. PT DENIES C/O PAIN. UNABLE TO WEAN DOPAMINE OFF D/T HYPOTENSION. MAP >65 ON 3MCG DOPAMINE. PT WAS ABLE TO COUGH STRONG; COUGHED UP BLOODY MUSCUS WHICH WAS SX'D VIA [facility].
--- NOTE | 2019-04-17 14:45 | NUR ---
PT WIDE AWAKE, SPEECH IMPROVING BUT NOT ENTIRELY CLEAR. PT ABLE TO STATE NAME ONLY. ASKS REPEATIVELY "I WANT MY MOMMY". PT HAS MANNERISM OF SMALL CHILD, GIGGLES, SHRUGS SHOULDERS, STICKS TONGUE OUT, OPENS MOUTH WIDE, ACTS AFRAID, SPEAKS GIBBERISH AT TIMES, ASKS FOR MOMMY. DOPAMINE GTT PLACED ON STANDBY.
--- NOTE | 2019-04-17 17:57 | NUR ---
PT IRRITABLE. C/O PAIN, ASK FOR PAIN MEDS, CANNOT STATE WHERE PAIN IS. PT'S STATES HE TAKES PAIN MEDS EVERYDAY FOR CHRONIC PAIN. FENT 25MCG IVP GIVEN. PT USING PROFANITY. LESS CHILD LIKE. REQUEST A BEER. 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
--- NOTE | 2019-04-17 20:00 | NUR ---
ASSUMED CARE OF PT AT 1915. REPORT RECEIVED AT BEDSIDE. PT PRESENTS IN BED. ALERT AND PLEASANTLY CONFUSED. PT VERY TALKATIVE, AND AT TIMES EUPHORIC SPEECH. LAUGHS OUT RANDOMLY, AND THEN IS UPSET AT TIMES. PT'S IN ROOM, AND PT CALLS OUT TO HER OFTEN. WILL REVIEW CHART AND PLAN OF CARE FOR THIS PT.
[2019-04-17 21:08] LABS: Vancomycin, Trough 9.6 ug/mL (5.0-10.0)
--- NOTE | 2019-04-17 23:00 | NUR ---
PT CONTINUES TO BE CONFUSED AND SPEAKING OUT RANDOMLY WITHOUT REGARDS IF SOMEONE IS IN ROOM OR NOT. PT HAS BEEN TOLERATING Q 2 HOUR TURNS IN BED. NOT ABLE TO HOLD CONVERSATIONS THAT ARE PRESENTED. IN NO APPARENT DISTRESS.
--- NOTE | 2019-04-18 02:37 | NUR ---
HAVE MEDICATED PT WITH 25 MCG FENTANYL FOR PRESUMED PAIN, AND VERBALIZATION THAT COULD BE INTERPRETED PT HAVING DISCOMFORT. PT DOES HAVE CHRONIC PAIN ISSUE FROM OLD LOWER EXTEMITY INJURY PER . AFTE FENTANYL, PT CALMER, AND NO LONGER DEMONSTRATES ANY INDICATIONS OF DISCOMFORT.
[2019-04-18 04:19] LABS: BASOPHILS ABSOLUTE AUTO 0.04 K/mm3 (0.00-0.23); BASOPHILS PERCENT AUTO 0 % (0-2); EOSINOPHILS ABSOLUTE AUTO 0.27 K/mm3 (0.00-0.68); EOSINOPHILS PERCENT AUTO 3 % (0-6); Hematocrit 41.7 % (37.0-53.0); Hemoglobin 12.7 g/dL (13.5-17.5); IMMATURE GRAN ABSOLUTE AUTO 0.05 K/mm3 (0.00-0.10); IMMATURE GRAN PERCENT AUTO 1 % (0-1); LYMPHOCYTES PERCENT AUTO 8 % (21-46); MONOCYTES ABSOLUTE AUTO 1.09 K/mm3 (0.16-1.47); MONOCYTES PERCENT AUTO 11 % (4-13); Mean Corpuscular HGB 24.1 pg (26.0-34.0); Mean Corpuscular HGB Conc 30.5 g/dL (31.5-36.5); Mean Corpuscular Volume 79 fL (80-100); Mean Platelet Volume 11.1 fL (9.1-12.4); NEUTROPHILS ABSOLUTE AUTO 8.05 K/mm3 (1.96-9.15); NEUTROPHILS PERCENT AUTO 78 % (41-73); Platelet Count 119 K/mm3 (150-400); RDW Coefficient Variation 15.7 % (11.7-14.2); RDW Standard Deviation 44.6 fL (35.1-46.3); Red Blood Cell Count 5.27 M/mm3 (4.30-5.90)
[2019-04-18 04:32] LABS: Albumin, Blood 2.6 g/dL (3.4-5.0); Anion Gap 5 mmol/L (6-16); Blood Urea Nitrogen 36 mg/dL (8-24); Bun/Creatinine Ratio 58.3 (12.0-20.0); CO2, Blood 28 mmol/L (21-32); Calcium, Blood 7.6 mg/dL (8.5-10.1); Chloride, Blood 110 mmol/L (98-108); Creatinine, Blood 0.62 mg/dL (0.60-1.20); Glomerular Filtration Rate >60 (60-); Glucose, Blood 78 mg/dL (70-99); Phosphorus, Blood 2.4 mg/dL (2.5-4.9); Sodium, Blood 143 mmol/L (136-145)
[2019-04-18 04:33] LABS: International Normalized Ratio 1.24; Prothrombin Time Results 12.9 Sec (9.7-11.5)
--- NOTE | 2019-04-18 05:46 | NUR ---
PT MEDICATED WITH BISACODYL SUPPOSITORY THIS SHIFT FOR NO RECORDED BM. PT TOLERATES THIS WELL. PENDING RESULTS. PT HAS REMAINED AWAKE MOST OF THIS SHIFT SPEAKING TO HIMSELF. PT'S REMAINS IN ROOM. PT HAS OCCASSIONAL BLOOD TINGED SPUTUM THAT HE IS ABLE TO EXPECTORATE. WILL CONTINUE TO MONITOR PT, AND WILL REPORT OFF TO ONCOMING RN.
--- NOTE | 2019-04-18 06:49 | NUR ---
NO RESULTS FROM BISACODYL SUPPOSITORY OF YET. PT UNABLE TO ANSWER QUESTION IF HE NEEDS TO HAVE BM.
--- NOTE | 2019-04-18 07:39 | NUR ---
ASSUMED CARE RECEIVED REPORT FROM THAI CRUZ. PT IS AWAKE, AND MAKING CONFUSING STATEMENTS. HE HAS STABLE VITALS, AND IS ON ROOM AIR. IS AT BEDSIDE, SLEPT IN ROOM OVERNIGHT. BED IS LOW AND LOCKED. CALL LIGHT WITHIN REACH. AND DOOR OPEN SO WE CAN HEAR HIM IF HE CALLS OUT.
--- NOTE | 2019-04-18 08:34 | NUR ---
DR HENDRIX CAME IN AND TALKED TO PT AND . HE WANTS TO KEEP PT IN ICU AT LEAST ONE MORE DAY. DISCUSSED PLAN OF CARE WITH . PT IS CONFUSED AND NOT COMPREHENDING MUCH.
[2019-04-18 08:49] LABS: Vancomycin, Trough 16.3 ug/mL (5.0-10.0)
--- NOTE | 2019-04-18 19:44 | NUR ---
SHIFT SUMMARY PT REMAINS CONFUSED AND MAKING INAPPROPRIATE STATEMENTS. HE IS HARD TO UNDERSTAND AT TIMES. HE IS FORGETFUL, REPEATING THE SAME QUESTION MULTIPLE TIMES. HE CAN GET FAIRLY AGGITATED, BUT IS OVERALL FAIRLY CALM. HE CAN FOLLOW BASIC COMMANDS, BUT NOT ALWAYS. HE CAN ANSWER QUESTIONS SOMETIMES. AT BEDSIDE HAS BEEN A TREMENDOUS HELP. HE IS ON ROOM AIR, AND SAT'S MID TO HIGH 90'S. HE IS NO LONGER ON TELLY, AND HE WAS CHANGED TO MEDICAL STATUS. 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 HIS LAST STRIP SHOWED A FL INTERVAL OF LESS THAN 0.2s. PT COMPLAINED OF PAIN IN HIS BUTT, SO I TRIED TO KEEP HIM OFF HIS BUTT AT ALL TIMES, AND FLOATED HIM WITH MANY PILLOWS WHEN IT WAS TIME TO GO SUPINE. HE HAS REDDENED AREAS IN HIS ADITYA AREA, AND COCCXY. HE PRODUCED BLOOD TINGED, THICKER SPUTUM EARLY ON IN THE DAY, BUT NONE SINCE. HE HAD A FEW BM'S THROUGHOUT THE DAY S/P LACTULOSE AND IS PASSING GAS. HE IS DISTENDED IN HIS ABDOMINAL AREA. HE GOT A COMPLETE BED BATH AND TOLERATED IT WELL. BED LOW AND LOCKED. CALL LIGHT WITHIN REACH.
--- NOTE | 2019-04-18 20:27 | NUR ---
ASSUMED CARE OF PT AT 1915. REPORT RECEIVED. PT PRESENTS IN BED IN NO APPARENT DISTRESS. NO S/S PAIN AT THIS TIME. PER REPORT HAS HAD SEVERAL BM'S THIS DAY. PT IS TO BE TRANSFERRED THIS NIGHT TO ROOM 340. WILL REVIEW CHART AND PLAN OF CARE FOR THIS PT.
--- NOTE | 2019-04-18 20:50 | NUR ---
REPORT GIVEN TO ANTHONY RAMIREZ. PT TO BE TRANSFERRED TO ROOM 340
--- NOTE | 2019-04-18 23:04 | NUR ---
2109 REPORT RECEIVED FROM ICU PER ANTHONY ANDRE. PT TRANSFERRED VIA BED TO ROOM 340 WITH AND PERSONAL BELONGINGS AT SIDE, ALERT TO PERSON ONLY AND UNABLE VOICE AND ANY UNDERSTANDABLE WORDS.
--- NOTE | 2019-04-19 08:04 | NUR ---
SHIFT CHANGE/DURING REPORT FROM OUTGOING NIGHT RN. 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 PUPILS SLUGGISH TO RESPOND TO LIGHT. PATIENT UNABLE TO RESPOND VERBALLY OR NON VERBALLY TO COMMANDS, NON VERBAL. PATIENT ABLE TO MOVE HEAD AND IS ALERT/NON VERBAL, EYE AND HEAD MOVEMENT PRESENT.
--- NOTE | 2019-04-19 08:13 | NUR ---
SHIFT SUMMARY: 69 Y/O MALE RESTED COMFORTABLY 3/4 OF SHIFT; PT HAD ONE PERIOD OF AGITATION AFTER TRANSFER TO [facility] WITH VERSED 2MG IVP GIVEN WITH RELIEF FELT AND PATIENT ABLE TO BETTER RELAX (PT WAS BREATHING LOUDLY, EYES WIDE AWAKE AND PTS ALSO VOICING THAT PATIENT HAD NOT SLEPT MUCH PAST FEW DAYS), PATIENT WAS MUCH MORE CALM AFTER VERSED WAS GIVEN; SEE PRIOR NURSING NOTES; PT CURRENTLY NPO; ESTRADA DRAINING DARK YELLOW FLUID; AT SIDE IN LOUNGE CHAIR ALL SHIFT; BED ALARM APPLIED, BED LOW POSITION WITH CALL LIGHT AT SIDE.
[2019-04-19 08:35] LABS: BASOPHILS ABSOLUTE AUTO 0.03 K/mm3 (0.00-0.23); BASOPHILS PERCENT AUTO 0 % (0-2); EOSINOPHILS ABSOLUTE AUTO 0.06 K/mm3 (0.00-0.68); EOSINOPHILS PERCENT AUTO 0 % (0-6); Hematocrit 52.1 % (37.0-53.0); IMMATURE GRAN ABSOLUTE AUTO 0.13 K/mm3 (0.00-0.10); IMMATURE GRAN PERCENT AUTO 1 % (0-1); LYMPHOCYTES ABSOLUTE AUTO 0.78 K/mm3 (0.84-5.20); LYMPHOCYTES PERCENT AUTO 5 % (21-46); MONOCYTES ABSOLUTE AUTO 1.08 K/mm3 (0.16-1.47); MONOCYTES PERCENT AUTO 7 % (4-13); Mean Corpuscular HGB Conc 30.7 g/dL (31.5-36.5); Mean Corpuscular Volume 78 fL (80-100); Mean Platelet Volume 11.5 fL (9.1-12.4); NEUTROPHILS ABSOLUTE AUTO 14.25 K/mm3 (1.96-9.15); NEUTROPHILS PERCENT AUTO 87 % (41-73); Platelet Count 123 K/mm3 (150-400); RDW Coefficient Variation 17.1 % (11.7-14.2); RDW Standard Deviation 44.4 fL (35.1-46.3); Red Blood Cell Count 6.68 M/mm3 (4.30-5.90); White Blood Cell Count 16.33 K/mm3 (4.00-11.30)
[2019-04-19 08:47] LABS: Vancomycin, Trough 17.9 ug/mL (5.0-10.0)
[2019-04-19 09:56] LABS: Alanine Aminotransfer (ALT/SGP 395 U/L (12-78); Albumin, Blood 2.8 g/dL (3.4-5.0); Albumin/Globulin Ratio 0.9 (0.8-1.8); Alk Phos 211 U/L (50-136); Anion Gap 8 mmol/L (6-16); Aspartate Aminotrans (AST/SGOT 46 U/L (12-37); Bilirubin, Total 2.4 mg/dL (0.1-1.0); Blood Urea Nitrogen 38 mg/dL (8-24); Bun/Creatinine Ratio 57.2 (12.0-20.0); CO2, Blood 26 mmol/L (21-32); Calcium, Blood 8.3 mg/dL (8.5-10.1); Chloride, Blood 107 mmol/L (98-108); Creatinine, Blood 0.66 mg/dL (0.60-1.20); Globulin, Blood 3.1 g/dL (2.2-4.0); Glomerular Filtration Rate >60 (60-); Glucose, Blood 97 mg/dL (70-99); Potassium, Blood 4.1 mmol/L (3.5-5.5); Sodium, Blood 141 mmol/L (136-145); Total Protein, Blood 5.9 g/dL (6.4-8.2)
--- NOTE | 2019-04-19 18:27 | NUR ---
SHIFT SUMMARY PATIENT ALERT/UNKNOWN ORIENTATION. FAMILY AT BEDSIDE. PATIENT IS FLACID IN ALL EXTREMITIES AND NON VERBAL. 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 IV ABX INFUSED INTO PICC LINE WITH NO ASE OBSERVED. PATIENT ESTRADA CATHETER REMOVED AND A CONDOM CATH IN PLACE INSTEAD AND PATIENT HAS VOIDED AFTER ESTRADA REMOVED. PATIENT REPOSITIONED TO PREVENT ADDITIONAL SKIN BREAKDOWN. CT ORDERED AND COMPLETED. MRI ORDERED AND COMPLETED.
--- NOTE | 2019-04-19 23:02 | NUR ---
193 PT REPOSITIONED EVERY 2 HOURS BY STAFF; AT SIDE AND VERY SUPPORTIVE; PT WAS SHAVED THIS BY STAFF AND TONIGHT; [place] CATHETER CHANGED THIS SHIFT; ORAL CARE ALSO GIVEN BY SPOUSE; THIS NURSE TAUGHT ADLS REQUIRED TO INCLUDE S/S PRESSURE ULCERS AND NEED TO REPOSITION Q2H; PTS ENTIRE BODY FLACCID WITH NO INTENTIONAL MOVEMENT NOTED; PT EYES ARE OPEN, NO WORDS ARE UTTERED; NO AGITATION NOTED.
--- NOTE | 2019-04-20 04:30 | NUR ---
SHIFT SUMMARY: 69 Y/O MALE RESTED COMFORTABLY ALL SHIFT; ALERT AND ORIENTED X 1 ONLY, NON VERBAL AND FLACCID ALL EXTREMITIES; +2 EDEMA NOTED BILATERAL UPPER ARMS; [place] CATHETER DRAINING CLEAR YELLOW FLUID; PTS AT SIDE ALL SHIFT AND ACTIVELY PARTICIPATED WITH ALL CARE PROVIDED BY STAFF TO INCLUDE CLEANSING UP LOOSE STOOL, REPOSITIONING PILLOWS, ORAL CARE AND ADLS WITH FURTHER INSTRUCTION REQUIRED; LEFT UPPER ARM PICC LINE PATENT; PT APPEARS COMFORTABLE AND IN NO PAIN; PT DOES FOLLOW THIS NURSE MOVEMENTS IN ROOM WITH HIS EYES WITH OCCASIONAL YAWN NOTED; BED ALARM APPLIED, BED LOW POSITION WITH CALL LIGHT AT SIDE.
[2019-04-20 05:32] LABS: BASOPHILS ABSOLUTE AUTO 0.05 K/mm3 (0.00-0.23); BASOPHILS PERCENT AUTO 0 % (0-2); EOSINOPHILS ABSOLUTE AUTO 0.17 K/mm3 (0.00-0.68); EOSINOPHILS PERCENT AUTO 2 % (0-6); Hematocrit 43.6 % (37.0-53.0); Hemoglobin 13.2 g/dL (13.5-17.5); IMMATURE GRAN ABSOLUTE AUTO 0.04 K/mm3 (0.00-0.10); IMMATURE GRAN PERCENT AUTO 0 % (0-1); LYMPHOCYTES ABSOLUTE AUTO 0.91 K/mm3 (0.84-5.20); LYMPHOCYTES PERCENT AUTO 8 % (21-46); MONOCYTES ABSOLUTE AUTO 1.02 K/mm3 (0.16-1.47); MONOCYTES PERCENT AUTO 9 % (4-13); Mean Corpuscular HGB 23.9 pg (26.0-34.0); Mean Corpuscular HGB Conc 30.3 g/dL (31.5-36.5); Mean Corpuscular Volume 79 fL (80-100); Mean Platelet Volume 11.8 fL (9.1-12.4); NEUTROPHILS ABSOLUTE AUTO 9.36 K/mm3 (1.96-9.15); NEUTROPHILS PERCENT AUTO 81 % (41-73); Platelet Count 161 K/mm3 (150-400); RDW Coefficient Variation 15.9 % (11.7-14.2); Red Blood Cell Count 5.52 M/mm3 (4.30-5.90); White Blood Cell Count 11.55 K/mm3 (4.00-11.30)
[2019-04-20 05:47] LABS: Anion Gap 6 mmol/L (6-16); Blood Urea Nitrogen 40 mg/dL (8-24); Bun/Creatinine Ratio 63.3 (12.0-20.0); CO2, Blood 26 mmol/L (21-32); Calcium, Blood 7.8 mg/dL (8.5-10.1); Chloride, Blood 111 mmol/L (98-108); Creatinine, Blood 0.63 mg/dL (0.60-1.20); Glomerular Filtration Rate >60 (60-); Glucose, Blood 100 mg/dL (70-99); Potassium, Blood 3.9 mmol/L (3.5-5.5); Sodium, Blood 143 mmol/L (136-145)
--- NOTE | 2019-04-20 09:40 | NUR ---
PT PAIN PT MOANING MORE THIS AM. ESPECIALLY WHEN MOVED. PT NODDED HIS HEAD TO HAVING PAIN. DR. HENDRIX NOTIFIED. DR. HENDRIX TO COME SEE PT SORTLY TO EVALUATE PT & ORDER MEDS NEEDED.
--- NOTE | 2019-04-20 16:42 | NUR ---
SHIFT SUMMARY PT STARTED ON CLINIMIX & LIPIDS THIS AFTERNOON. BOTH CURRENTLY RUNNING. COMPATIBILITY CHECKED WITH PHARMACY. PT MORE VOCAL WITH GROANS & MOANS THIS SHIFT. PT STILL HAS NOT SPOKE. PT REMAINS NPO PER ST EVAL. PT & OT UNABLE TO EVAL. PT CONTINUES TO RESIST MOVEMENTS. NO OTHER CHANGES IN ASSESSMENT AT THIS TIME. VSS. FOAM CHANGED THIS SHIFT ON BOTTOM. BED BATH COMPLETED THIS SHIFT. WILL CONTINUE TO MONITOR UNTIL TURNOVER IS COMPLETE.
--- NOTE | 2019-04-21 03:55 | NUR ---
SHIFT SUMMARY ADMITTED FOR SEPTIC SHOCK W/PNEUMONIA. LIVES W/. PLAN IS FOR DC TO [address] [place] [address], HOPEFULLY TOMORROW. Q 6 HR CHEMSTICKS. INCONTINENT. ATTENDS IN PLACE. BEDREST. PT IS NONVERBAL BUT DOES MAKE SOME SOUNDS, HE SAID "WOW" TO ME ONCE THIS SHIFT. BUT WILL NOT RESPOND WHEN I ASK HIM QUESTIONS. IV CLINIMIX IS RUNNING @ 50 ML/HR, IV D5W 1/2NS KCL 20 MEQ IS RUNNING @ 50 ML/HR ORDERED. PICC LINE IN LEFT UPPER ARM, 3 LUMENS. RA. [place]STATIN POWDER WOULD BENEFIT THIS PT FOR REDNESS OF GROIN AREA. HE MOANS AND CALLS OUT IN PAIN WHEN REPOSITIONED Q 2 HRS.
[2019-04-21 05:44] LABS: Magnesium, Blood 1.9 mg/dL (1.6-2.4)
[2019-04-21 05:48] LABS: Anion Gap 7 mmol/L (6-16); Blood Urea Nitrogen 42 mg/dL (8-24); CO2, Blood 22 mmol/L (21-32); Calcium, Blood 7.6 mg/dL (8.5-10.1); Chloride, Blood 111 mmol/L (98-108); Creatinine, Blood 0.58 mg/dL (0.60-1.20); Glomerular Filtration Rate >60 (60-); Glucose, Blood 106 mg/dL (70-99); Phosphorus, Blood 2.9 mg/dL (2.5-4.9); Potassium, Blood 4.4 mmol/L (3.5-5.5); Sodium, Blood 140 mmol/L (136-145); Triglycerides 117 mg/dL (30-160)
--- NOTE | 2019-04-21 15:49 | NUR ---
SHIFT SUMMARY: PT IS AWAKE AND ALERT AND RECOGNIZES HIS . HE IS ALSO ABLE TO FOLLOW DIRECTIONS. PT WAS ABLE TO EVENT ORGANIZER MY HAND WITH HIS RIGHT HAND WHEN ASKED TODAY WELL SMILE WHEN ASKED TO DO SO. PERRLA INTACT. LUNGS ARE DIM THROUGHOUT WITH NO S/S OF RESP DISTRESS.IV FLUIDS/ABO HAVE INFUSED VIA PICC LINE. ALL LUMENS FLUSH WITH SOME RESISTANCE. PT [employer] OF B/B WITH SOME REDNESS TO HIS ROIN R/T THE INCONTINENCE. HAS BEEN AT BEDSIDE ALL SHIFT. ORAL CARE HAS BEEN DONE FREQUENTLY THROUGHOUT THE DAY AND PT WAS ASSISTED WITH A BED BATH. PT IS RESTING IN BED WITH HIS AT THE BEDSIDE.
--- NOTE | 2019-04-21 17:56 | NUR ---
REPORT WAS CALLED TO ANTHONY HUNG AT [facility] WHO IS RECEIVING THE PT FOR TRANSFER.
--- NOTE | 2019-04-21 18:40 | NUR ---
PT WAS [place] TRANSFERRED TO [facility]IA [facility]. IV PUMP WAS SENT WITH PT SO IV FLUIDS CAN CONTINUE TO INFUSE ORDERED. ALL PERSONAL BELONGINGS SENT WITH PT. AT PT BEDSIDE. PT STABLE UPON DC.
== END 2019-04-21 18:23 | disposition short-term general hospital (02) | DRG 870 ==
LOC: ER 18:17 → ICUE 20:10 → ICUW 20:14 → MEDS 20:14 → ICUE 20:14 → ICUW 04-13 13:11 → ICUE 04-13 13:13 → MEDS 04-18 21:16
PROVIDERS: Hospitalist; Internal Medicine Critical Care Medicine; ADMIT Internal Medicine
PROC: 0BH17EZ Insertion of Endotracheal Airway into Trachea, Via Natural or Artificial Opening (ICD-10-PCS; principal; 2019-04-11)
PROC: 5A1955Z Respiratory Ventilation, Greater than 96 Consecutive Hours (ICD-10-PCS; 2019-04-11)
DX: A41.9 Sepsis, unspecified organism (principal); J96.01 Acute respiratory failure with hypoxia; I50.21 Acute systolic (congestive) heart failure; G92 Toxic encephalopathy; J18.9 Pneumonia, unspecified organism; R65.21 Severe sepsis with septic shock; E87.2 Acidosis; N17.9 Acute kidney failure, unspecified; I42.9 Cardiomyopathy, unspecified; Z96.642 Presence of left artificial hip joint; Z90.79 Acquired absence of other genital organ(s); M19.90 Unspecified osteoarthritis, unspecified site; Z87.891 Personal history of nicotine dependence; M41.9 Scoliosis, unspecified; K72.90 Hepatic failure, unspecified without coma; T68.XXXA Hypothermia, initial encounter; E87.5 Hyperkalemia; N18.3 Chronic kidney disease, stage 3 (moderate); I12.9 Hypertensive chronic kidney disease with stage 1 through stage 4 chronic kidney disease, or unspecified chronic kidney disease; G89.4 Chronic pain syndrome; E87.6 Hypokalemia; R45.1 Restlessness and agitation; E83.39 Other disorders of phosphorus metabolism
CPT/HCPCS: 0099U; 31500; 31720; 36415; 36569; 36600; 51702; 70450; 70551; 71045; 76705; 80048; 80053; 80069; 80076; 80202; 81001; 82140; 82330; 82550; 82553; 82607; 82746; 82803; 82947; 83605; 83735; 83880; 84100; 84478; 84484; 85025; 85027; 85610; 85730; 87040; 87070; 87086; 87205; 90686; 92526; 92610; 93005; 93010; 93306; 94002; 94003; 96374; 99285-25; C1751; C9113; G0008; J0610; J0692; J1265; J1650; J1815; J1940; J2060; J2250; J2704; J3010; J3370; J3411; J3475; J3480; J7030; J7050; J7060; J7799; P9046